=== PATIENT | female | born 1985 | race Caucasian/White ===

== ENCOUNTER 2018-05-06 09:39 | Inpatient (IN) | payer OTHER ==
[2018-05-06] MEDS: LACTATED RINGER'S 1,000 ML IV* (10:25)
[2018-05-06] MEDS ORDERED: CARBOPROST 250 MCG INJ IM (10:30)
[2018-05-06] MEDS ORDERED: OXYTOCIN 30 UNITS/LR 500 ML IV (10:30)
[2018-05-06] MEDS ORDERED: METHYLERGONOVINE 0.2 MG INJ IM (10:30)
[2018-05-06] MEDS ORDERED: LIDOCAINE 1% (MPF) 30 ML INJ INJ (10:30)
[2018-05-06] MEDS ORDERED: MISOPROSTOL 200 MCG TAB PR (10:30)
[2018-05-06 10:47] LABS: ADD MAN DIFF? NO
[2018-05-06 10:51] LABS: BASOPHILS % 0.2 % (0.0-2.0); EOSINOPHILS % 0.7 % (0.0-7.0); HEMOGLOBIN 13.5 g/dl (12.0-16.0); LYMPHOCYTES # 1.2 10^3/ul (0.8-2.9); LYMPHOCYTES % 19.4 % (15.0-51.0); MEAN CORPUSCULAR HEMOGLOBIN 30.4 pg (29.0-33.0); MEAN CORPUSCULAR HGB CONC 33.8 g/dl (32.0-37.0); MEAN CORPUSCULAR VOLUME 90.1 fl (82.0-101.0); MEAN PLATELET VOLUME 10.7 fl (7.4-10.4); MONOCYTE # 0.4 10^3/ul (0.3-0.9); MONOCYTES % 5.9 % (0.0-11.0); NEUTROPHIL # 4.4 10^3/ul (1.6-7.5); NEUTROPHILS % 73.3 % (39.0-77.0); PLATELET COUNT 226 10^3/UL (140-415); RED BLOOD COUNT 4.44 10^6/ul (4.20-5.40); RED CELL DISTRIBUTION WIDTH 13.9 % (11.5-14.5)
[2018-05-06 11:11] LABS: INR 0.86; PROTIME 11.8 Sec (11.9-14.9); PT RATIO 0.9
[2018-05-06 11:12] LABS: PARTIAL THROMBOPLASTIN TIME 27.4 Sec (25.0-35.0)
[2018-05-06 14:58] LABS: RAPID PLASMA REAGIN NONREACTIVE (NR)
[2018-05-07] MEDS: BUTORPHANOL 2 MG INJ IV (01:11)
[2018-05-07] MEDS: LACTATED RINGER'S 1,000 ML IV* ×4 (02:16→18:30)
[2018-05-07] MEDS: OXYTOCIN 30 UNITS/LR 500 ML IV ×4 (06:45→18:33)
[2018-05-07] MEDS ORDERED: FENTAnyl 2MCG/ML-ROPIV 0.2% 100 ML (09:42)
[2018-05-07] MEDS ORDERED: NALOXONE (0.4 MG/ML) INJ IV (10:30)
[2018-05-07] MEDS ORDERED: DIPHENHYDRAMINE 50 MG INJ IV (10:30)
[2018-05-07] MEDS: FENTAnyl 2MCG/ML-ROPIV 0.2% 100 ML BAG EPI (10:43)
[2018-05-07] MEDS: ONDANSETRON 4 MG INJ IV (11:13)
[2018-05-07] MEDS: MINERAL OIL LIGHT 10 ML VIAL TOP (14:44)
[2018-05-07] MEDS ORDERED: ACETAMINOPHEN 325 MG TAB PO (17:30)
[2018-05-07] MEDS ORDERED: OXYCODONE/ASPIRIN (4.88/325) TAB PO (17:30)
[2018-05-07] MEDS ORDERED: HYDROCODONE/APAP (5/325) TAB PO ×2 (17:30)
[2018-05-07] MEDS ORDERED: DIBUCAINE 1% 30 GM OINT PR (17:30)
[2018-05-07] MEDS ORDERED: LANOLIN 7 GM TUBE TOP (17:30)
[2018-05-07] MEDS ORDERED: ONDANSETRON 4 MG INJ IV (17:30)
[2018-05-07] MEDS: IBUPROFEN 600 MG TAB PO (18:20)
[2018-05-07] MEDS: BENZOCAINE 20% 56 ML SPRAY TOP (18:21)
[2018-05-07] MEDS: WITCH HAZEL/GLYCERIN PAD PR (18:21)
[2018-05-07] MEDS: SENNA/DOCUSATE NA (8.6MG/50MG) TAB PO (21:42)
[2018-05-08] MEDS: IBUPROFEN 600 MG TAB PO ×4 (00:06→18:00)
[2018-05-08] MEDS: LACTATED RINGER'S 1,000 ML IV* ×3 (02:30→18:30)
[2018-05-08 06:31] LABS: ADD MAN DIFF? NO
[2018-05-08 06:37] LABS: WHITE BLOOD COUNT 7.8 10^3/ul (4.8-10.8)
[2018-05-08 06:37] LABS: BASOPHILS % 0.1 % (0.0-2.0); EOSINOPHILS # 0.1 10^3/ul (0.0-0.5); EOSINOPHILS % 1.2 % (0.0-7.0); HEMATOCRIT 35.1 % (37.0-47.0); HEMOGLOBIN 11.8 g/dl (12.0-16.0); LYMPHOCYTES # 1.6 10^3/ul (0.8-2.9); LYMPHOCYTES % 20.7 % (15.0-51.0); MEAN CORPUSCULAR HEMOGLOBIN 30.4 pg (29.0-33.0); MEAN CORPUSCULAR HGB CONC 33.6 g/dl (32.0-37.0); MEAN CORPUSCULAR VOLUME 90.5 fl (82.0-101.0); MEAN PLATELET VOLUME 10.4 fl (7.4-10.4); MONOCYTE # 0.4 10^3/ul (0.3-0.9); MONOCYTES % 5.3 % (0.0-11.0); NEUTROPHIL # 5.6 10^3/ul (1.6-7.5); NEUTROPHILS % 72.3 % (39.0-77.0); PLATELET COUNT 200 10^3/UL (140-415); RED BLOOD COUNT 3.88 10^6/ul (4.20-5.40); RED CELL DISTRIBUTION WIDTH 14.2 % (11.5-14.5)
[2018-05-08] MEDS: SENNA/DOCUSATE NA (8.6MG/50MG) TAB PO ×2 (09:27→21:00)
[2018-05-08] MEDS ORDERED: BUPIVACAINE 0.75%/DEXT (SPINAL) 2 ML INJ (20:28)
[2018-05-08] MEDS ORDERED: hydrALAzine 20 MG INJ IV (21:00)
[2018-05-08] MEDS ORDERED: DIPHENHYDRAMINE 50 MG INJ IV (21:00)
[2018-05-08] MEDS ORDERED: FENTAnyl 50 MCG/ML VIAL IV ×2 (21:00)
[2018-05-08] MEDS ORDERED: ONDANSETRON 4 MG INJ IV (21:00)
[2018-05-08] MEDS ORDERED: LABETALOL HCL 20MG INJ IV (21:00)
[2018-05-08] MEDS ORDERED: EPHEDrine SULFATE 50 MG/5 ML SYG IV (21:00)
[2018-05-08] MEDS ORDERED: METOCLOPRAMIDE 10 MG INJ IV (21:00)
[2018-05-08] MEDS ORDERED: OXYCODONE/ACETAMINOPHEN (5/325) TAB PO ×2 (21:00)
[2018-05-08] MEDS ORDERED: MEPERIDINE 25 MG INJ IV (21:00)
[2018-05-08] MEDS ORDERED: MIDAZOLAM 1 MG/ML 2 ML INJ IV (21:00)
[2018-05-08] MEDS ORDERED: CEFAZOLIN 1 GM INJ (21:25)
[2018-05-08] MEDS ORDERED: MIDAZOLAM 1 MG/ML 2 ML INJ (21:46)
[2018-05-08] MEDS ORDERED: FENTAnyl 50 MCG/ML VIAL (21:49)
[2018-05-08] MEDS: FENTAnyl 50 MCG/ML VIAL IV ×2 (22:33→22:50)
[2018-05-08] MEDS ORDERED: HYDROmorphONE 0.5 MG/0.5 ML SYG IV (23:00)
[2018-05-09] MEDS: IBUPROFEN 600 MG TAB PO ×3 (00:09→12:52)
[2018-05-09] MEDS: OXYCODONE/ASPIRIN (4.88/325) TAB PO ×2 (01:17→11:19)
[2018-05-09] MEDS: LACTATED RINGER'S 1,000 ML IV* (02:01)
[2018-05-09] MEDS ORDERED: HYDROmorphONE 0.5 MG/0.5 ML SYG IV (05:00)
[2018-05-09] MEDS: SENNA/DOCUSATE NA (8.6MG/50MG) TAB PO (09:00)
[2018-05-09] MEDS ORDERED: MEASLES,MUMPS,RUBELLA VACCINE INJ SC* (09:00)
[2018-05-09] MEDS ORDERED: [UNRECOGNIZED DRUG - OTHER] XX (09:00)
[2018-05-09] MEDS: DIPHTH/TET/ACEL PERTUSS (ADULT) 0.5 ML VIAL IM* (14:24)
== END 2018-05-09 16:30 | disposition home or self-care (01) | DRG 767 ==
LOC: OBT 09:39 → L-D 09:40 → PP1 05-07 17:15 → OBT 10:03 → L-D 10:05
PROVIDERS: Obstetrics & Gynecology
PROC: 10E0XZZ Delivery of Products of Conception, External Approach (ICD-10-PCS; principal; 2018-05-08 21:00)
PROC: 0UB70ZZ Excision of Bilateral Fallopian Tubes, Open Approach (ICD-10-PCS; 2018-05-08 21:00)
PROC: 3E0234Z Introduction of Serum, Toxoid and Vaccine into Muscle, Percutaneous Approach (ICD-10-PCS; 2018-05-08 21:00)
DX: O69.81X0 Labor and delivery complicated by cord around neck, without compression, not applicable or unspecified (principal); O70.0 First degree perineal laceration during delivery; O99.214 Obesity complicating childbirth; E66.9 Obesity, unspecified; Z68.34 Body mass index [BMI] 34.0-34.9, adult; Z37.0 Single live birth; Z3A.38 38 weeks gestation of pregnancy; Z30.2 Encounter for sterilization; Z23 Encounter for immunization
CPT/HCPCS: 62319; 76818; 85025; 85610; 85730; 86592; 86850; 86900; 86901; 87086; 88302; 90715